=== PATIENT | female | born 1980 | race Caucasian/White ===

== ENCOUNTER 2016-08-09 11:48 | Inpatient (IN) | payer OTHER ==
[~2016-08-09] VITALS: Ht 172.7 cm; Wt 94.4 kg
[2016-08-09 13:00] VITALS: BP 122/82; PULSE 89; RESP 16; O2SAT 97
--- NOTE | 2016-08-09 13:14 | NUR ---
Admit Pt is a direct admit from [facility], report received from [place]. Pt arrived via stretcher, A/O x 4 able to make needs known, pt transferred self, steady gait noted. VSS. Neuros negative, SL easily flushed. Will continue to monitor.
--- NOTE | 2016-08-09 13:36 | PCM.HPMED ---
Subjective Date of Service August 09, 2016 Primary Provider: Admitting Physician: Diana Mesa DO Primary Care Physician: Attending Physician: Diana Mesa DO Allergies Coded Allergies: No Known Drug Allergies (Verified Allergy, Unknown, 08/09/16) Exam Vital Signs Vital Sign - Last Date Time Temp Pulse Resp B/P Pulse Ox O2 Delivery O2 Flow Rate FiO2 08/09/16 13:00 89 08/09/16 13:00 37.1 16 122/82 97 Room Air Assessment & Plan HPI: Patient is a 36-year-old female who presents from [facility] with a complaint of TIA. The patient has a history of palpitations and was actually scheduled to have a Holter monitor next week however the patient had increasing palpitations and started to have aphasia this morning while in the shower and was brought to the hospital. While the patient was at [facility] is noted the patient was in A. fib and also had a troponin of 0.42. CT angio was negative and the patient was transferred here for further cardiology workup TIA rule out. 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 Please see HPI for pertinent positives, all other systems are negatives. Physical Exam: GEN: Patient was awake, alert, responding appropriately to questions HEENT: Pupils equal round and reactive to light, extraocular eye muscles intact , Neck soft supple, trachea midline, nomocephalic/atraumatic CV: +S1/S2, regular rate and rhythm, harsh systolic murmur auscultated Respiratory: CTAB, no wheezes, rales, rhonchi GI: +bowel sounds x4, soft, compressible, nontender to palpation EXT: no clubbing, cyanosis, edema Neuro: Cranial nerves II-XII grossly intact Psych: mood and affect were appropriate Assessment and Plan 36-year-old female with chest palpitations and TIA TIA -CT angios was negative at [facility] -MRI of the brain -Echo -Continue aspirin daily -Follow up lipids -Follow up hemoglobin A1c -Continue to monitor Chest pain with elevated troponin -Serial troponins -Echo -laborer heading in the morning if serial troponins are negative -Telemetry -Continue to monitor -Consider consult to cardiology in the morning Asthma (A currently stable) -Albuterol when necessary Migraines (a currently stable) -Imitrex when necessary Diet: Gen. DVT prophylaxis: SCDs Code Status: Full code Disposition: Due to the nature of the patient's current diagnosis anticipated stay is greater than 2 midnight VTE Prophylaxis: SCDs Resuscitation Status: CPR: Attempt Resuscitation Time spent 1 hour Diana Mesa DO August 09, 2016 13:36
[2016-08-09] MEDS ORDERED: [UNRECOGNIZED DRUG - CODE] PO (13:57)
[2016-08-09] MEDS ORDERED: SUMA100T2 PO (14:00)
[2016-08-09] MEDS ORDERED: ETHI1TAB PO (14:00)
[2016-08-09] MEDS ORDERED: LEVO200T6 PO (14:09)
[2016-08-09] MEDS ORDERED: ALBU6.7H INH (14:09)
[2016-08-09] MEDS ORDERED: Ondansetron 2 mg/mL 2 mL Inj IVPUSH PRN (14:55)
[2016-08-09] MEDS ORDERED: Alum-Mag Hydrox-Simeth 30 mL Suspension PO PRN (14:55)
[2016-08-09] MEDS ORDERED: Polyethylene Glycol (PEG) 17 Gm Powder PO PRN (14:55)
[2016-08-09 16:20] LABS: APPEARANCE,URINE CLEAR (CLEAR,HAZY); COLOR,URINE STRAW (YELLOW); OCCULT BLOOD,URINE NEGATIVE (NEGATIVE); UROBILINOGEN,URINE NORMAL (NORMAL)
[2016-08-09 16:27] LABS: TROPONIN T 0.171 ug/L (0.0-0.011)
[2016-08-09] MEDS ORDERED: Albuterol 2.5 mg/3 mL Inhalation Solution NEB PRN (16:30)
--- NOTE | 2016-08-09 16:58 | NUR ---
Uneventful Pt A/O x 3, independent in room with steady gait. Denies c/o of pain or discomfort. Pt resting comfortably in bed with call light within reach, bed low and locked, intentional rounding.
--- NOTE | 2016-08-09 17:00 | DRSVH ---
PROCEDURE: MRI BRAIN WITHOUT CONTRAST ([id number]) INDICATIONS: DIZZINESS TECHNIQUE: Non-contrast axial T1 spin echo, axial T2 fast spin echo, sagittal and axial FLAIR, coronal T2 fast s pin echo, axial gradient echo, axial diffusion and ADC through the brain. COMPARISON: None. FINDINGS: Image quality: Excellent. CSF spaces: Ventricles appear symmetric in size and shape. Basal cisterns are patent. No extra-axi al fluid collections. Brain: No intracranial bleeds or mass effects. There is cerebral volume loss for age. There are pe riventricular and deep white matter chronic small vessel ischemic changes. Brainstem appears normal. Diffusion-weighted images show no acute ischemic insults. No chronic ischemic insults. Normal int ravascular flow voids are present. Skull and face: Calvarial bone marrow is normal in signal. Orbits are normal. Sinuses: Sinuses and mastoids are clear. IMPRESSION: No acute intracranial abnormality. No recent infarct. No explanation for dizziness. Dictated by: Sushil Mitchell M.D. on 08/09/2016 at 16:57 Approved by: Sushil Mitchell M.D. on 08/09/2016 at 16:58
[2016-08-09 20:22] VITALS: BP 135/84; PULSE 99; RESP 16; O2SAT 95
[2016-08-10] VITALS (7 sets, daily range): BP systolic 104–126; BP diastolic 69–87; PULSE 72–97; RESP 16; O2SAT 95–98
--- NOTE | 2016-08-10 03:38 | NUR ---
Uneventful Night Pt c/o headache 4-08/07 in the beginning of the shift, Tylenol given, headache resolved. Denies chest pain/pressure/SOB, but pt states she can feel irregular heart beats. Tele: SR 80s, quiet a few PVCs, PACs, sometimes bigiminal PVCs per athletic monitor. Lung sounds clear. Troponin at 2200 0.162, slightly lower than previous one 0.171. Denies dizziness,vertigo. Neurocheck no focal neurological deficits. VSS, afebrile.
--- NOTE | 2016-08-10 05:55 | NUR ---
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 Pt asymptomatic. Dr. Stafford paged. No order given at this time.
[2016-08-10 06:01] LABS: Mean Corpuscular Hemoglobin 29.7 pg (27.0-35.0); Mean Corpuscular Volume 88.1 fL (81-100)
[2016-08-10 07:00] LABS: TROPONIN T 0.184 ug/L (0.0-0.011)
--- NOTE | 2016-08-10 11:47 | DRSVH ---
[facility] [address] [place] [address] Echocardiogram Report Name: SANG HERNANDEZ JStudy Date: Height: 68 in Hospital Exam Location: [facility] Weight: 208 lb Gender: Female BSA: 2.1 m2 : 1980 Age: 36 yrs BP: 122/82 mmHg Reason For Study: PALPITATIONS, TIA Ordering Physician: ANA MARIA TEAM Performed By: Wilberto Morillo Referring Physician: Emilia BENJAMIN Interpretation Summary Left ventricular systolic function is severely reduced with the ejection fraction estimated to be around 15% with severe global hypokinesis but no obvious focal wall motion abnormalities. The left ventricle is moderate- severely dilated and no thrombus is seen although cannot be entirely excluded, especially in the setting of a possible TIA. There is left ventricular diastolic dysfunction with the E/E' ratio moderately increased, suggesting possible increased filling pressures. The right ventricle is normal in size and function. Pulmonary artery pressures cannot be estimated because of the lack of a measurable TR jet velocity but the IVC is small, suggesting a low right atrial pressure of 3 mm Hg. The left atrium is mildly dilated while right atrial size is normal. Injection of contrast documented no interatrial shunt. The mitral valve is normal in structure but there is moderate mitral regurgitation. There is no other significant valvular heart disease. Procedure: A two-dimensional transthoracic echocardiogram with color flow and Doppler was performed. The study quality was technically good. There is no prior echocardiogram noted for this patient. A saline contrast injection was performed to assess for cardiac shunting. The patient was in normal sinus rhythm during the exam. The patient had frequent PVCs during the exam. Left Ventricle: There is normal left ventricular wall thickness. The left ventricle is moderate-severely dilated. There is no thrombus. But cannot be entirely excluded. Left ventricular systolic function is severely reduced. The ejection fraction is estimated to be 15-20%. There is severe global hypokinesis of the left ventricle. There are no focal wall motion abnormalities. There is left ventricular diastolic dysfunction. The E/E' ratio is moderately increased, suggesting possible increased filling pressures. Right Ventricle: The right ventricle is normal in size and function. Atria: The left atrium is mildly dilated. Right atrial size is normal. Injection of contrast documented no interatrial shunt. Mitral Valve: There is mild mitral annular calcification. The mitral valve is normal in structure but abnormal in function. There is moderate mitral regurgitation. Aortic Valve: The aortic valve is trileaflet. The aortic valve opens well. There is trace aortic regurgitation. Tricuspid Valve: The tricuspid valve is normal in structure and function. No tricuspid regurgitation. Pulmonary artery pressures cannot be estimated because of the lack of a measurable TR jet velocity. Pulmonic Valve: The pulmonic valve is normal in structure and function. There is trace pulmonic regurgitation. There is no other significant valvular heart disease. Great Vessels: The aortic root is normal size. The dimensions of the ascending aorta are normal. The pulmonary artery is normal size. The IVC is of normal diameter and collapses greater than 50% with a sniff. This suggests a low right atrial pressure of 3 mm Hg. Pericardium/ Pleura There is no pericardial effusion. There is no pleural effusion. MMode/2D Measurements & Calculations LVIDd: 6.8 cm LA dimension: 3.7 cm RA long axis: 5.0 cm Ao root diam LVIDs: 6.0 cm FS: 12.0 % LA A2 area: 23.7 cm RA area: 12.9 cm Aortic Jxn EPSS: 2.2 cm LA A4 area: 24.2 cm RA vol: 28.6 ml IVSd: 0.92 cm LA length (vol): 6.4 cm RA : 13.8 ml/m2 asc Aorta LVPWd: 1.0 cm LA vol: 75.5 ml Diam: 2.8 cm LA vol index: 36.3 ml/m IVC diam: 0.76 cm EDV(MOD-sp2) LV ramos. diameter/BSA LV sys. diameter/BSA (cm/m^2): 3.3 (cm/m^2): 2.9 ESV(MOD-sp2) EF(MOD-sp2) Doppler Measurements & Calculations Ao V2 max MV E max jani MV E/A: 1.6 PA V2 max : 95.0 cm/sec : 76.6 cm/sec Med Peak E' Jani : 59.4 cm/sec Ao max PG MV A max jani PA mean PG : 3.6 mmHg : 48.9 cm/sec E/E' med: 20.6 : 0.82 mmHg Ao mean PG MV A dur: 0.10 sec PA Accel Time : 2.4 mmHg : 0.13 sec MV dec time Ao V2 mean PA V2 mean : 0.14 sec : 75.4 cm/sec : 43.7 cm/sec Ao V2 VTI: 16.7 cm PA pr(Accel) : 14.1 mmHg Reading Physician:11:46 AM
--- NOTE | 2016-08-10 11:53 | NUR ---
Social Work: Screening Data: Pt is a 36 y/o female admitted for TIA. Pt's PCP is Dr Bran, pt's insurance is [employer]. EMR reviewed. No d/c planning needs anticipated at this time. MD states in rounds that cardiology will meet with pt. 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 Assessment: Pt who is independent at baseline. Plan: Pt will d/c home via POV when medically stable. No d/c planning needs anticipated at this time. states in rounds that cardiology will meet with pt. 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 JORGE Barragan
--- NOTE | 2016-08-10 14:41 | CONS ---
[address] [address] CONSULTATION REPORT PATIENT: SANG HERNANDEZ : 1980 MR#: [id number] ADMIT: 08/09/2016 JOB ID: [id number] CARDIOLOGY CONSULTATION: DATE OF SERVICE: 08/10/2016 IDENTIFICATION: Dr. Diana Mesa has asked that I consult on this 36-year-old female admitted with abnormal troponins and complex ventricular ectopy. HISTORY: The patient denies any previous cardiac history, although over the past year she has noted occasional palpitations which she describes as an isolated skipped beat although rarely in brief runs up to around 30 seconds, occasionally associated with some lightheadedness, rarely with near syncope. These have typically been occurring around once a week over the past several months. Around three weeks ago, she had an episode of lightheadedness while driving with impairment of her vision, but denies any clear true presyncope and had no palpitations. This lasted around 30 seconds and resolved. She saw her primary care provider because of this, who noted an irregularity to her pulse and obtained an ECG which showed sinus rhythm with frequent PVCs and an occasional PAC, and she was scheduled for Holter. However, yesterday, while in a hot shower, she developed a transient expressive aphasia where she felt that she could not speak and felt foggy and confused for around 20 seconds. There was no associated palpitations with this nor was there any clear presyncope. However, on the basis of this, she presented to [facility] where an ECG showed a blood pressure 132/107 with an ectopic atrial tachycardia with frequent PVCs at [address] and head CT angiogram were normal but her troponin was elevated at 0.428, but the rest of her laboratory was unremarkable including a TSH that was normal at 1.19 and a normal D-dimer. She was given aspirin and a dose of metoprolol and transferred to [facility]. Here, she continues to feel well. An echocardiogram has been obtained that shows moderate-severe left ventricular enlargement at 6.8 cm with severe global hypokinesis with an ejection fraction around 15% without any focal wall motion abnormality. There is moderate mitral regurgitation but no other significant valvular abnormality. Right ventricular size and function appear normal. There is a small IVC suggesting a low right atrial pressure. There is no obvious intracavitary thrombus. Telemetry here has shown sinus rhythm at 80-100 bpm with frequent PVCs, often in a bigeminal pattern with 112 beat run of a monomorphic ventricular tachycardia at around 150 bpm. She does no regular exercise, but has noted but no clear change in her daily activities, although has noted mild exertional dyspnea over the last several months which she has attributed to being "out of shape" but denies any resting dyspnea or orthopnea. She had no chest pain or other anginal-type symptoms. She has had no pedal edema. She denies any recent myalgias or flu-like syndrome. CARDIAC RISK FACTORS: Denies any history of hypertension, diabetes, or tobacco use. She has had borderline high cholesterol in the past that has not been treated. FAMILY HISTORY: Unremarkable for any premature coronary disease although grandfather had an TX in his 80s. However, two paternal uncles have cardiomyopathy; one requiring a heart transplant at age 60. PAST MEDICAL HISTORY: Notable only for seasonal asthma for which she uses an inhaler rarely. She has a history of hypothyroidism which has been adequately replaced with no recent adjustments in her thyroid medication. She has a history of migraines. She has had previous vaginal mesh surgery and umbilical hernia repair. 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 She admits to two alcoholic beverages per week and adamantly denies any other substance use. REVIEW OF SYSTEMS: No history of any fever or chills or weight change. Denies any vision changes, ENT problems. Denies any cough or hemoptysis. No history of any peptic ulcer disease or GI blood loss. Denies any genitourinary complaints, although had frequent UTIs as a child, but none as an adult. Denies any unusual musculoskeletal complaints or neurologic symptoms except as described above. She denies any bleeding disorder, unusual anxiety or depression. PHYSICAL EXAMINATION: Pleasant, healthy appearing, middle-aged white female, in no distress. HR 89, BP 106/87, O2 saturation 95% on room air. Weight is 94.4 kg. Skin: Warm and dry with multiple tattoos. Eyes: EOM without arcus. She has good dentition. Lungs: Clear bilaterally to auscultation and percussion without any rales or wheeze. CV: Nonpalpable PMI with a regular rhythm with frequent premature beats but no appreciable murmurs or gallops. There is no obvious JVD. Carotid and femoral pulses are 2+ bilaterally with a normal upstroke and without bruit. Dorsalis pedis pulses are 2+ bilaterally and posterior tibial pulses nonpalpable. Abdomen: Soft, nondistended, nontender without any palpable masses or organomegaly. Normal bowel tones are present without bruits. Extremities: Warm without any clubbing, cyanosis, or edema. Neuro: Moves all four extremities. Psych: Awake, alert, and oriented. LABORATORY DATA: White count 5.2 with hematocrit of 39%. Potassium is 4.3 with a BUN of 19 and a creatinine of 0.8 and a glucose of 108. A1c is 5.6. Magnesium is 2.0. Troponins remain mildly elevated ranging from 0.17-0.18 without any clear pattern. Her total cholesterol is 185 with an LDL of 104 and an HDL of 61. TSH is 0.973. IMAGING: ECG shows sinus rhythm without any significant ST-segment abnormalities. There are frequent PVCs. Brain MRI shows no abnormalities. IMPRESSION: 1. Severe global left ventricular cardiomyopathy. The etiology of this is not clear. She has no clear stimulus for this. I doubt that this represents underlying coronary disease given her minimal risk factors. I think the two most likely etiologies would be an arrhythmogenic cardiomyopathy with her frequent premature ventricular contractions possibly producing her left ventricular systolic function or a genetic cardiomyopathy given her family history. Alternatively, her premature ventricular contractions could be a result of her underlying left ventricular dysfunction. At this point, I would attempt medical therapy with metoprolol starting at low doses and escalating upward to see how she responds. Ultimately, I would like to add low-dose SHER inhibitor as well. Fortunately, it does not appear that she has any pulmonary congestion or volume overload, and given this, and her left ventricular enlargement, this most likely is a chronic process rather than an acute process. At some point, she may require cardiac catheterization but I do not think this needs to be done immediately and I would like to get her better compensated. 2. Frequent premature ventricular contractions with nonsustained ventricular tachycardia. As above, this could either be a primary problem that has resulted in her cardiomyopathy, or more likely a result of her cardiomyopathy. I discussed with her the potential need for an implantable defibrillator if her left ventricular systolic function does not improve or if we see more concerning ventricular tachycardia. I would keep her in the hospital for at least another 48 hours to assess for any concerning ventricular arrhythmias. 3. Expressive aphasia. Unclear if this represented a cerebral ischemic event or was more of a hypotensive event given that she was in a hot shower. I do not see any evidence of intracavitary thrombus on her echocardiogram, although one certainly cannot be entirely excluded given her left ventricular systolic function. I do not believe that she requires anticoagulation at this point unless she has recurrent events or there is other demonstrable evidence for thrombus. 4. Hypothyroidism. Appears to be adequately replaced. PLAN: 1. Initiate low-dose metoprolol therapy and consider adding low-dose SHER inhibitor if blood pressure allows it. 2. Slow incremental advancement of both. 3. Continue to monitor heart rate and rhythm over the next 48 hours. 4. Consider implantable defibrillator if she continues to have complex ventricular ectopy. TIME SPENT: I spent 1 hour and 28 minutes reviewing the patient's record and examining the patient, and answering her family's questions.
[2016-08-10] MEDS: MeTOProlol XL 25 mg ER24 Tablet PO SCH ×2 (14:53→21:12)
--- NOTE | 2016-08-10 15:09 | PCM.PNMED ---
Subjective Date of Service August 10, 2016 Subjective Patient was seen and examined at bedside today. Patient denies any chest pain, shortness of breath, nausea, vomiting, diarrhea. Overnight events: None Exam Vital Signs Vital Sign - Last Date Time Temp Pulse Resp B/P Pulse Ox O2 Delivery O2 Flow Rate FiO2 08/10/16 14:18 36.2 72 16 98 Room Air Exam Physical Exam: GEN: Patient was awake, alert, responding appropriately to questions HEENT: Pupils equal round and reactive to light, extraocular eye muscles intact , Neck soft supple, trachea midline, nomocephalic/atraumatic CV: +S1/S2, irregular rhythm harsh systolic murmur auscultated Respiratory: CTAB, no wheezes, rales, rhonchi GI: +bowel sounds x4, soft, compressible, nontender to palpation EXT: no clubbing, cyanosis, edema Neuro: Cranial nerves II-XII grossly intact Psych: mood and affect were appropriate IVs and Medications Medications Reviewed: Medications were reviewed in detail Lab and Diagnostics Result Diagram: 08/10/16 0547 08/10/1647 Assessment & Plan 36-year-old female with chest palpitations and TIA Chest pain with elevated troponin secondary to ventricular tachycardia with possible undiagnosed congenital cardiomyopathy -Serial troponins elevated -Echo EF 15% with elevated LVH 6.8 cm, significantly positive for cardiomyopathy -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 Cummings) -Patient had 12-14 beats of ventricular tachycardia today -Start Carvedilol 6.25 twice a day we will continue to try and titrate the patient up as blood pressure tolerates -We will consider starting lisinopril and titrate up as blood pressure tolerates -HIV screening -Continue to monitor TIA -CT angios was negative at [facility] -MRI of the brain negative for CVA -Echo EF of 15% with moderate LVH -Continue aspirin daily -LDL elevated at 104 -Start atorvastatin 10 mg daily at bedtime -Hemoglobin A1c 5.6 within normal limits -Continue to monitor Asthma (A currently stable) -Albuterol when necessary Migraines (a currently stable) -Imitrex when necessary Diet: Gen. DVT prophylaxis: SCDs, ambulation, Lovenox daily Code Status: Full code Disposition: Cardiology (Dr. Cummings) was consulted this morning in a significant discussion was held with him and the patient's and then discussed with myself. The patient has significant cardiomyopathy as her ejection fraction is 15%. At this time the plan is to optimize the patient medically with beta blockers and tiara inhibitors as her blood pressure tolerates. If the patient has another long run of 12-14 beats of V. tach then the patient may need to be considered for a defibrillator. At this time the patient's TIA symptoms seem to be most likely secondary to some sort of vasovagal reaction from the steaming hot water in the shower causing a hypotensive event as opposed to a TIA. The patient is very well compensated for cardiomyopathy which is most likely congenital in nature. The only other thing that could potentially have caused this is HIV. As the patient does have a significant amount of tattoos were discussed with the patient and run an HIV screening. At this time the patient will need to remain hospitalized for further monitoring and titrating of the medication. VTE Prophylaxis: SCDs Resuscitation Status: CPR: Attempt Resuscitation Diana Mesa DO August 10, 2016 15:09 Diana Mesa DO August 10, 2016 15:09
[2016-08-11] VITALS (9 sets, daily range): BP systolic 105–129; BP diastolic 71–96; PULSE 82–100; RESP 16–20; O2SAT 95–99
[2016-08-11 06:28] LABS: Mean Corpuscular Hemoglobin 29.4 pg (27.0-35.0); Mean Corpuscular Volume 87.5 fL (81-100)
--- NOTE | 2016-08-11 06:34 | NUR ---
Uneventful Night pt able to sleep during the night with minimal interruptions. VSS, afebrile, on RA. denies pain during the night. IV SL, patent when flushed. using call light to make needs known. placed within reach. hourly rounding in effect.
[2016-08-11 07:00] LABS: Unsaturated Iron Binding 269.7 ug/dL
[2016-08-11 07:10] LABS: TROPONIN T 0.108 ug/L (0.0-0.011)
[2016-08-11] MEDS ORDERED: MeTOProlol XL 25 mg ER24 Tablet PO SCH (08:30)
--- NOTE | 2016-08-11 10:46 | PROG NOTE ---
[address] [address] PROGRESS NOTE PATIENT: SANG HERNANDEZ : 1980 MR#: [id number] ADMIT: 08/09/2016 JOB ID: [id number] DATE: 08/11/2016 SUBJECTIVE: The patient continues to feel well and has tolerated her first 2 doses of low-dose metoprolol. She has ambulated and continues to deny any chest discomfort, dyspnea, or lightheadedness. She has had no neurologic symptoms. She feels that she notices her palpitations less prominently. Telemetry continues to show frequent PVCs, at times in a bigeminal and trigeminal pattern, but there has been no nonsustained ventricular tachycardia since yesterday. PHYSICAL EXAMINATION: A healthy appearing, middle-aged female, in no distress. HR 90, BP 111/80, O2 saturation 95% on room air. Lungs clear bilaterally without any rales or wheeze. Cardiovascular regular rate and rhythm, although with frequent premature beats. No appreciable murmurs or gallops. JVP appears to be around 3-4 cm. Carotid pulses have normal upstroke. Abdomen soft, nondistended, and nontender. Extremities warm without any edema. LABORATORY: Hematocrit was 41%. Platelet count was 82,000 down from 215,000. Her bicarb has fallen from 19 and 16. BUN is 18 with a creatinine of 0.8, but a potassium of 4.8, and a magnesium of 2.0. LFTs remain normal. Her troponin is now trending downward at 0.108. Her HIV is nonreactive. Her iron studies are normal. ECG: Her ECG shows a probable ectopic atrial focus with inverted P waves and frequent PVCs. There is inferolateral Q-waves. IMPRESSION: 1. Severe dilated cardiomyopathy with frequent ventricular ectopy including nonsustained ventricular tachycardia. I continue to believe that this most likely is an idiopathic or genetic type of cardiomyopathy. It does not appear to be acute or fulminant given the absence of any pulmonary congestion. She has tolerated initiation of low-dose beta blockade, but subsequent incremental advancement will need to be slow, generally every 1-2 weeks given her severely reduced function. I will initiate low-dose SHER inhibitor today with close observation of her blood pressure, renal function, and electrolytes. I have communicated the case with Dr. Porter, who believes the patient would benefit from an electrophysiologic study and if she had inducible malignant ventricular arrhythmias then a defibrillator would be appropriate. However, this can be deferred to the outpatient setting. He also recommends obtaining a cardiac MR study prior to this to further evaluate the etiology of her cardiomyopathy. This can also be arranged as an outpatient in the next several weeks. In the meantime, she should undergo cardiac catheterization to exclude the possibility of coronary artery disease, although I think this is very unlikely. I will discuss further with Dr. Hoyos to see if he is available tomorrow to perform this. If this shows no significant coronary disease, then I suspect that she can be discharged tomorrow with a Life Vest external defibrillator to protect her until her EP study. She can undergo incremental outpatient upward titration of her metoprolol and lisinopril and if she continues to have significant LV systolic dysfunction after optimal medical therapy, consideration can be given for referral to the [facility] for advanced treatment. I would anticipate repeating an echocardiogram in 2-3 months to assess the efficacy of her medical therapy. 2. Mildly depressed bicarbonate level. I will repeat laboratory tomorrow. 3. Thrombocytopenia. I will repeat a CBC tomorrow. PLAN: 1. Initiate lisinopril 2.5 mg b.i.d. with continued monitoring of her electrolytes, renal function, and blood pressure. 2. Anticipate cardiac catheterization with Dr. Hoyos tomorrow with possible discharge following this if she remains well compensated without any malignant arrhythmias. 3. Anticipate outpatient cardiac MRI and subsequent EP study with incremental advancement of her beta kelly and angiotensin converting enzyme inhibitor. 4. Anticipate repeat echocardiogram in 2-3 months to reassess LV systolic function with consideration for referral to the [facility] if her cardiomyopathy remains severe. 5. The patient should be discharged with a Life Vest external defibrillator. I spent 50 minutes discussing the case with my colleagues, interviewing and examining the patient. CURTIS
--- NOTE | 2016-08-11 15:27 | PCM.PNMED ---
Subjective Date of Service August 11, 2016 Subjective Patient was seen and examined at bedside today. Patient denies any chest pain, shortness of breath, nausea, vomiting, diarrhea. Patient states that the palpitations that she has been feeling have significantly improved. Overnight events: None Exam Vital Signs Vital Sign - Last Date Time Temp Pulse Resp B/P Pulse Ox O2 Delivery O2 Flow Rate FiO2 08/11/16 14:46 36.5 86 18 122/78 98 Room Air Intake and Output 08/10/16 08/10/16 08/11/16 Cumulative From/Thru 15:00 23:00 07:00 08/09/16 13:06 - 08/11/16 06:05 Intake Total 1100 ml 800 ml 700 ml 2600 ml Output Total 1550 ml 950 ml 1100 ml 3600 ml Balance -450 ml -150 ml -400 ml -1000 ml Intake Oral 1100 ml 800 ml 700 ml 2600 ml Output Urine Total 1550 ml 950 ml 1100 ml 3600 ml # Bowel Movements 1 1 Exam Physical Exam: GEN: Patient was awake, alert, responding appropriately to questions HEENT: Pupils equal round and reactive to light, extraocular eye muscles intact , Neck soft supple, trachea midline, nomocephalic/atraumatic CV: +S1/S2, regular rate and rhythm, positive harsh systolic murmur auscultated however seems softer today Respiratory: CTAB, no wheezes, rales, rhonchi GI: +bowel sounds x4, soft, compressible, nontender to palpation EXT: no clubbing, cyanosis, edema Neuro: Cranial nerves II-XII grossly intact Psych: mood and affect were appropriate IVs and Medications Medications Reviewed: Medications were reviewed in detail Lab and Diagnostics Result Diagram: 08/11/16 0555 08/11/16 0555 Assessment & Plan 36-year-old female with chest palpitations and TIA Chest pain with elevated troponin secondary to ventricular tachycardia with possible undiagnosed congenital cardiomyopathy -Serial troponins elevated currently trending down -Echo EF 15% with elevated LVH 6.8 cm, significantly positive for cardiomyopathy -Patient is scheduled to go to the [facility] tomorrow - Continue Telemetry -Cardiology following (Dr. Cummings) -Patient had 12-14 beats of ventricular tachycardia (08/10/16) -Overnight patient was mildly tachycardic however no runs of V. tach but positive PVCs and some bigeminy and trigeminy. -Continue Carvedilol 6.25 twice a day we will continue to try and titrate the patient up as blood pressure tolerates -Start lisinopril 2.5 mg daily as recommended by cardiology -HIV screening: Negative -Continue to monitor TIA -CT angios was negative at [facility] -MRI of the brain negative for CVA -Echo EF of 15% with moderate LVH -Continue aspirin daily -Hemoglobin A1c 5.6 within normal limits -Continue to monitor Hyperlipidemia -LDL elevated at 104 -Total cholesterol was within normal limits -Start atorvastatin 10 mg Asthma (A currently stable) -Albuterol when necessary Migraines (a currently stable) -Imitrex when necessary Diet: Heart healthy, consultation nutrition DVT prophylaxis: SCDs, ambulation, Lovenox daily Code Status: Full code Disposition: The patient seems to be responding well to medical management. After discussion with cardiology (Dr. Cummings) he feels that the patient should remain at her current metoprolol dose of 6.25 mg twice a day and start lisinopril 2.5 mg daily. At this time HIV screen was negative ruling out any type of cardiomyopathy secondary to HIV infection. The patient will go for a cardiac cath tomorrow to look for any possible blockages causing her problems as well. If the patient remains stable tomorrow in tolerates her cardiac cath she could potentially be discharged home tomorrow. The patient has been explained that going into high altitudes at this time may not be the best plan of action for her heart. She should follow closely with cardiology in regards to exercise as well. The patient stated that she understood and would follow recommendations from cardiology. VTE Prophylaxis: SCDs Resuscitation Status: CPR: Attempt Resuscitation Diana Mesa DO August 11, 2016 15:27
[2016-08-11] MEDS: Sodium Chloride LOK Flush 10 mL Syringe IVFLUSH SCH ×2 (16:32→22:05)
--- NOTE | 2016-08-11 17:50 | NUR ---
spotting pt reports spotting since stopping her control medications. pads given
[2016-08-11] MEDS: MeTOProlol XL 25 mg ER24 Tablet PO SCH (21:23)
[2016-08-12] VITALS (14 sets, daily range): BP systolic 100–116; BP diastolic 52–72; PULSE 71–83; RESP 15–18; O2SAT 96–99
[2016-08-12] MEDS ORDERED: 0.9% Sodium Chloride 1,000 ML IV ONE (01:00)
[2016-08-12 06:39] LABS: BASOPHILS % (AUTO) 0.2 % (0-3); EOSINOPHILS % (AUTO) 0.9 % (0-5); MONOCYTES % (AUTO) 8.4 % (4-12); Mean Corpuscular Hemoglobin 29.7 pg (27.0-35.0); NEUTROPHILS % (AUTO) 36.7 % (40-74); Platelet Count 209 bil/L (150-400)
[2016-08-12] MEDS ORDERED: Heparin 10,000 Unit/1,000 mL NS Premix IV ONE (07:30)
[2016-08-12] MEDS ORDERED: Heparin 1,000 Units/500 mL NS Premix IV ONE (07:30)
[2016-08-12] MEDS: MeTOProlol XL 25 mg ER24 Tablet PO SCH (08:22)
[2016-08-12] MEDS: Sodium Chloride LOK Flush 10 mL Syringe IVFLUSH SCH ×2 (08:23→14:15)
[2016-08-12] MEDS ORDERED: fentaNYL-PF 50 mCg/mL 2 mL Inj ONE (09:16)
--- NOTE | 2016-08-12 11:42 | CS94 ---
[address] [address] DIAGNOSTIC CARDIAC CATHETERIZATION PATIENT: SANG HERNANDEZ : 1980 MR#: [id number] ADMIT: 08/09/2016 JOB ID: [id number] PROCEDURE NOTE--CARDIAC CATHETERIZATION LABORATORY: SERVICE DATE: Friday, August 12, 2016 PERSONAL CARE ASSISTANT: Octavio Hoyos MD PROCEDURE: 1. Coronary angiogram--urgent. 2. Right heart catheterization. CLINICAL DETAILS: This 36-year-old woman who was previously healthy and asymptomatic presents to the catheterization laboratory for diagnostic coronary angiogram to rule out coronary disease and ischemic cardiomyopathy after she presented two days ago with palpitations and a brief episode of dysphasia that led to identifying systolic cardiomyopathy with ejection fraction of 15%. On physical examination, she appears not to be in heart failure, and appears to be well compensated with low jugular venous pressure, clear lungs and no edema. ECG shows multiple PVCs and runs of nonsustained ventricular tachycardia and sinus rhythm alternating with probable atrial rhythm. Troponin is somewhat elevated. Echocardiogram shows diffuse hypokinesia without regional wall motion defects. She has a family history suggestive of possible familial cardiomyopathy (two uncles have cardiomyopathy including one had a heart transplant). PROCEDURAL DETAILS: I met her the day before in her room on the [facility] and discussed the findings, impressions, and management considerations with her and her . We discussed the procedure including possible risks and complications. We discussed bleeding, infection, blood clot, as well as injury to nerve, artery, vein or kidney; and also arrhythmia, drug reaction; or others. We discussed treatment as needed including pacemaker, transfusion or surgery. We discussed more serious complications that are possible including stroke, heart attack, cardiac arrest, and emergency surgery including transfer for coronary bypass. After questions and discussion, she signed informed consent to proceed. She was brought to the catheterization laboratory n.p.o., where she was prepped sterilely and draped for the procedure. CORONARY ANGIOGRAM: Arterial access was obtained first in the right common femoral vein using fluoroscopic localization over the femoral head and micropuncture technique to insert a 10 cm, 8-S[place]an side-arm sheath in the right common femoral vein. Then, arterial access was obtained in a similar manner without difficulty using an 18-gauge Cook needle to insert a 10 cm, 6-[place]an side-arm sheath in the right common femoral artery. RIGHT HEART CATHETERIZATION: A right heart catheterization was performed. A 7 cm balloon tipped flow direction thermodilution Chilmark-Yaa catheter was inserted without difficulty to the right wedge position. Right-sided pressures were measured on pullback; and cardiac output was measured with a Marylin technique and thermodilution technique. The Chilmark catheter was then removed. Next, a 6-[place]an JL-4 diagnostic catheter was inserted in the right femoral artery to engage the left coronary artery for angiography. Then, the right coronary artery was imaged using a 6-[place]an JR-4 catheter. Procedure without difficulty. The patient tolerated the procedure well. No complications. A side-arm sheath angiogram shows adequate access in the right common femoral artery for a closure device. Arterial hemostasis was obtained without difficulty using a 6-[place]an Perclose suture. The patient is transferred comfortable and in stable condition from the catheterization laboratory to the [facility] unit for ongoing care including by the primary hospitalist team. I discussed the findings, impressions, and further management considerations with the patient and her ; as well as with the hospitalist service; and with Cardiology. FINDINGS: 1. LMCA: Intact. The left main coronary artery is short and without angiographic stenoses. 2. LAD: Intact. The left anterior descending coronary artery is a large transapical vessel with four diagonals of which three are moderate sized. There are no angiographic obstructions. 3. LCX: Intact. The left circumflex coronary artery distribution includes a large branching ramus vessel; and the LCX proper is a smaller vessel with a small to moderate-sized posterolateral LPL branch. 4. RCA: Intact. Dominant. The right coronary artery has no angiographic obstruction and terminates in a moderate-sized PDA and a moderate-sized RPLB. 5. RHC: a. PAW 12 (mean;V15). b. PA 27/12 (mean 17). c. RV 27/6. d. RA 5 (mean). e. FA 96%, PA 66%. f. O2 saturation 95%. g. Cardiac output 5.3 (Marylin). h. Cardiac output 5.4 (thermodilution). CONCLUSIONS: 1. Coronary arteries--normal; note no angiographic obstruction and not even any angiographically evident atherosclerotic plaquing in this young woman without other CAD risk factors. 2. RHC--compensated right heart pressures with only mildly elevated wedge and no pulmonary hypertension and maintained cardiac output. RECOMMENDATIONS: The current study rules out ischemic cardiomyopathy that would require revascularization.
--- NOTE | 2016-08-12 15:02 | PROG NOTE ---
[address] [address] PROGRESS NOTE PATIENT: SANG HERNANDEZ : 1980 MR#: [id number] ADMIT: 08/09/2016 JOB ID: [id number] DATE: 08/12/2016 SUBJECTIVE: The patient is sitting on bed. No active chest pain or worsening shortness of breath, palpitation or syncope, or stroke-like symptoms or right groin bleed. OBJECTIVE: Blood pressure 105/70, heart rate 80, respiratory rate 16, oxygen saturation in room air 99%. Neck: No apparent JVP. Chest: No obvious crepitation, rhonchi. CVS: S1, S2 normal. No S3, no S4. Clinically no significant murmur. Abdomen: No obvious pulsatile mass. Right groin examination did not reveal any significant hematoma. Extremities: No significant pedal edema. TELEPHONY ENGINEER: Alert, oriented to time, place, and person. Vascular: No evidence of critical limb ischemia. Telemetry: Sinus rhythm with intermittent PVCs. Sometimes ventricular trigeminy. LABS: Sodium 140, potassium 4.4, BUN 15, creatinine 0.79. Recent iron studies were normal. TSH was within normal limits. Hemoglobin 12.9, platelets 209. HIV workup negative. Echocardiogram on August 10, 2016 revealed a moderate to severely dilated left ventricle with LV ejection fraction about 15% to 20% with severe global hypokinesis without any obvious LV thrombus, normal right ventricular function, mild MAC with moderate MR, no pericardial effusion. Left heart catheterization today did not reveal any obvious coronary artery disease. Mean wedge pressure 12 mmHg. Pulmonary artery systolic pressure 27/12 mmHg. Cardiac output 5.3 with Marylin. ASSESSMENT/PLAN: Severely dilated cardiomyopathy with frequent ventricular ectopy, nonsustained ventricular tachycardia, status post left heart catheterization which did not reveal any coronary artery disease. The patient denies any known history of diabetes, hypertension or alcoholism. No recent viral infection. No history of chemotherapy. The patient has family history of dilated cardiomyopathy from her father's side. One of her uncles has cardiac transplant and 2nd uncle has restrictive cardiomyopathy. The patient denies any known history of connective tissue disorder. Iron studies normal. No history of cardiomyopathy. There is a possibility of familial dilated cardiomyopathy. For detailed description, please refer to Dr. Cummings's consultation and followup note. At this point of time, I will start her on Aldactone 12.5 mg daily. Slowly and gradually we will recommend optimization and maximization of beta kelly and SHER inhibitor. At present, she is not in gross volume overload. There was no obvious LV clot seen in the left ventricle. There is no dense spontaneous echo contrast as well. MRI head did not reveal any obvious stroke. I had a long discussion with the patient as well as hospitalist. Dr. Cummings also briefed me about this patient. The plan is to arrange a life vest for her. Dr. Cummings will see her as an outpatient. He already spoke to our window maker, Dr. Porter, who will see her as an outpatient. Cardiac MRI as an outpatient. We will recommend close monitoring of electrolytes. Consider pulmonary embolism prophylaxis until she is in the hospital. Preventive measures. Congestive heart failure education discussed. Overall time spent today about 40 minutes.
--- NOTE | 2016-08-12 17:02 | NUR ---
Returned from [facility] Patient arrived back to room from [facility] s/p heart cath. Heart cath was diagnostic only, no interventions done. R groin site soft, slightly tender, no oozing or redness noted. No s/sx bruising/hematoma. Pt A&O, VSS. Pt denies pain/discomfort at this time. Pt independent to bathroom. SO at beside, call light within reach.
[2016-08-12] MEDS ORDERED: SPIR25TA PO (17:48)
[2016-08-12] MEDS ORDERED: ASPI325T32 PO (17:48)
[2016-08-12] MEDS ORDERED: LISI-571 PO (17:48)
[2016-08-12] MEDS ORDERED: METO25TA99 PO (17:48)
--- NOTE | 2016-08-12 18:08 | PCM.DIMED ---
Discharge Instructions Date of Service August 12, 2016 Dates of Hospitalization August 09, 2016 at 13:00 Discharge Diagnosis Discharge Diagnosis Severely dilated cardiomyopathy with frequent ventricular beats Hyperlipidemia Asthma Migraines TIA (ruled out) Diet Heart Healthy Activity Other (DO not go to higher altitudes until cleared by cardiology. Please do not do any strenuous activity such as exercising until you are cleared by cardiology.) Call your provider Shortness of breath, Chest pain, Weakness (unilateral) Patient Instructions Follow-up plan There is a prescription for a cardiac MRI for you to follow up with please call the number and schedule an appointment [phone] There is also a prescription for follow-up blood work please get this done a early's convenience Follow-up Provider: Bianka Bran MD Follow-up with PCP in: 1 week (If an appointment has not been made please call to schedule an appointment) Provider: Earl Porter MD Follow-up in: 1 week (If an appointment has not been made please call to schedule an appointment [phone]) Mid-level Provider (F9): Marcos Cummings MD Follow-up with Mid-level in: 2 weeks (If an appointment has not been made please call to schedule an appointment [phone]) Diana Mesa DO August 12, 2016 18:08
--- NOTE | 2016-08-12 18:26 | PCM.DC.MED ---
Discharge Summary Date of Service August 12, 2016 Dates of Hospitalization Date of Hospital Admission August 09, 2016 at 13:00 Date of Discharge: August 12, 2016 Providers: Admitting Physician: Diana Mesa DO Primary Care Physician: Bianka Benjamin MD Attending Physician: Diana Mesa DO Diagnosis at Time of Discharge Diagnosis at Time of Discharge Severely dilated cardiomyopathy with frequent ventricular beats Hyperlipidemia Asthma Migraines TIA (ruled out) Procedures XRay, CTs & MRIs PROCEDURE: MRI BRAIN WITHOUT CONTRAST ([id number]) IMPRESSION: No acute intracranial abnormality. No recent infarct. No explanation for dizziness. Dictated by: Sushil Mitchell M.D. on 08/09/2016 at 16:57 Approved by: Sushil Mitchell M.D. on 08/09/2016 at 16:58 Cardiac Echo Impression Echocardiogram Report Name: SANG HERNANDEZ JStudy Date: Height: 68 in Hospital Exam Location: [facility] Weight: 208 lb Gender: Female BSA: 2.1 m2 : 1980 Age: 36 yrs BP: 122/82 mmHg Reason For Study: PALPITATIONS, TIA Ordering Physician: ANA MARIA COCHRAN Performed By: Wilberto Morillo Referring Physician: Emilia BENJAMIN Interpretation Summary Left ventricular systolic function is severely reduced with the ejection fraction estimated to be around 15% with severe global hypokinesis but no obvious focal wall motion abnormalities. The left ventricle is moderate- severely dilated and no thrombus is seen although cannot be entirely excluded, especially in the setting of a possible TIA. There is left ventricular diastolic dysfunction with the E/E' ratio moderately increased, suggesting possible increased filling pressures. The right ventricle is normal in size and function. Pulmonary artery pressures cannot be estimated because of the lack of a measurable TR jet velocity but the IVC is small, suggesting a low right atrial pressure of 3 mm Hg. The left atrium is mildly dilated while right atrial size is normal. Injection of contrast documented no interatrial shunt. The mitral valve is normal in structure but there is moderate mitral regurgitation. There is no other significant valvular heart disease. Reading Physician:11:46 AM Invasive Procedures PROCEDURE NOTE--CARDIAC CATHETERIZATION LABORATORY: SERVICE DATE: Friday, August 12, 2016 SPECIAL EVENTS DRIVER: Octavio Hoyos MD PROCEDURE: 1. Coronary angiogram--urgent. 2. Right heart catheterization. CLINICAL DETAILS: This 36-year-old woman who was previously healthy and asymptomatic presents to the catheterization laboratory for diagnostic coronary angiogram to rule out coronary disease and ischemic cardiomyopathy after she presented two days ago with palpitations and a brief episode of dysphasia that led to identifying systolic cardiomyopathy with ejection fraction of 15%. On physical examination, she appears not to be in heart failure, and appears to be well compensated with low jugular venous pressure, clear lungs and no edema. ECG shows multiple PVCs and runs of nonsustained ventricular tachycardia and sinus rhythm alternating with probable atrial rhythm. Troponin is somewhat elevated. Echocardiogram shows diffuse hypokinesia without regional wall motion defects. She has a family history suggestive of possible familial cardiomyopathy (two uncles have cardiomyopathy including one had a heart transplant). PROCEDURAL DETAILS: I met her the day before in her room on the [facility] and discussed the findings, impressions, and management considerations with her and her . We discussed the procedure including possible risks and complications. We discussed bleeding, infection, blood clot, as well as injury to nerve, artery, vein or kidney; and also arrhythmia, drug reaction; or others. We discussed treatment as needed including pacemaker, transfusion or surgery. We discussed more serious complications that are possible including stroke, heart attack, cardiac arrest, and emergency surgery including transfer for coronary bypass. After questions and discussion, she signed informed consent to proceed. She was brought to the catheterization laboratory n.p.o., where she was prepped sterilely and draped for the procedure. CORONARY ANGIOGRAM: Arterial access was obtained first in the right common femoral vein using fluoroscopic localization over the femoral head and micropuncture technique to insert a 10 cm, 8-Mauritian side-arm sheath in the right common femoral vein. Then, arterial access was obtained in a similar manner without difficulty using an 18-gauge Cook needle to insert a 10 cm, 6-Mauritian side-arm sheath in the right common femoral artery. RIGHT HEART CATHETERIZATION: A right heart catheterization was performed. A 7 cm balloon tipped flow direction thermodilution [place] catheter was inserted without difficulty to the right wedge position. Right-sided pressures were measured on pullback; and cardiac output was measured with a Marylin technique and thermodilution technique. The [place] catheter was then removed. Next, a 6-Mauritian JL-4 diagnostic catheter was inserted in the right femoral artery to engage the left coronary artery for angiography. Then, the right coronary artery was imaged using a 6-Mauritian JR-4 catheter. Procedure without difficulty. The patient tolerated the procedure well. No complications. A side-arm sheath angiogram shows adequate access in the right common femoral artery for a closure device. Arterial hemostasis was obtained without difficulty using a 6-Mauritian Perclose suture. The patient is transferred comfortable and in stable condition from the catheterization laboratory to the [facility] unit for ongoing care including by the primary hospitalist team. I discussed the findings, impressions, and further management considerations with the patient and her ; as well as with the hospitalist service; and with Cardiology. FINDINGS: 1. LMCA: Intact. The left main coronary artery is short and without angiographic stenoses. 2. LAD: Intact. The left anterior descending coronary artery is a large transapical vessel with four diagonals of which three are moderate sized. There are no angiographic obstructions. 3. LCX: Intact. The left circumflex coronary artery distribution includes a large branching ramus vessel; and the LCX proper is a smaller vessel with a small to moderate-sized posterolateral LPL branch. 4. RCA: Intact. Dominant. The right coronary artery has no angiographic obstruction and terminates in a moderate-sized PDA and a moderate-sized RPLB. 5. RHC: a. PAW 12 (mean;V15). b. PA 27/12 (mean 17). c. RV 27/6. d. RA 5 (mean). e. FA 96%, PA 66%. f. O2 saturation 95%. g. Cardiac output 5.3 (Marylin). h. Cardiac output 5.4 (thermodilution). CONCLUSIONS: 1. Coronary arteries--normal; note no angiographic obstruction and not even any angiographically evident atherosclerotic plaquing in this young woman without other CAD risk factors. 2. RHC--compensated right heart pressures with only mildly elevated wedge and no pulmonary hypertension and maintained cardiac output. RECOMMENDATIONS: The current study rules out ischemic cardiomyopathy that would require revascularization. Octavio Hoyos MD 08/12/16 1044 Hospital Course 36-year-old female with chest palpitations and TIA symptoms Patient presented to the emergency room with the complaint of chronic chest palpitations and an episode of slurred speech while in the shower. The patient was admitted for a TIA workup and brain MRI was negative however patient's echo showed that she had an EF of 15% in a severe cardiomyopathy. Cardiology was involved and started the patient on beta kelly 6.25 mg of carvedilol twice a day and 2.5 mg of lisinopril. The patient was sent to the [facility] and her coronary arteries were clear. 12.5 mg of spironolactone was added today. The patient should follow-up with cardiology and her PCP upon discharge. The patient should also follow-up with Dr. Porter for electrophysiology of the heart. The patient will also follow-up to have a cardiac MRI and follow-up labs were ordered by Dr. Ellis for BARB, CBC, BMP, troponin, RA, CPK, and C- reactive protein. The patient does have a training for work that is to be in [facility] however because of the high altitude this has been advised against as we are unsure with a high altitude could also due to the heart and oxygen saturation. The patient stated that she understood and would let her job know. The patient is being discharged home in stable condition with a LifeVest. This case was discussed today with Dr. Ellis and Dr. Hoyos. See below for full hospital course: Chest pain with elevated troponin secondary to ventricular tachycardia with possible undiagnosed congenital cardiomyopathy -Serial troponins elevated currently trending down -Echo EF 15% with elevated LVH 6.8 cm, significantly positive for cardiomyopathy -Patient is scheduled to go to the [facility] tomorrow - Continue Telemetry -Cardiology following (Dr. Cummings) -Patient had 12-14 beats of ventricular tachycardia (08/10/16) -Overnight patient was mildly tachycardic however no runs of V. tach but positive PVCs and some bigeminy and trigeminy. -Continue Carvedilol 6.25 twice a day we will continue to try and titrate the patient up as blood pressure tolerates -Start lisinopril 2.5 mg daily as recommended by cardiology -HIV screening: Negative -Continue to monitor TIA (he ruled out -CT angios was negative at [facility] -MRI of the brain negative for CVA -Echo EF of 15% with moderate LVH -Continue aspirin daily -Hemoglobin A1c 5.6 within normal limits -Continue to monitor Hyperlipidemia -LDL elevated at 104 -Total cholesterol was within normal limits -Start atorvastatin 10 mg Asthma (A currently stable) -Albuterol when necessary Migraines (a currently stable) -Imitrex when necessary Diet: Heart healthy, consultation nutrition DVT prophylaxis: SCDs, ambulation, Lovenox daily Code Status: Full code Disposition: The patient seems to be responding well to medical management. After discussion with cardiology (Dr. Cummings) he feels that the patient should remain at her current metoprolol dose of 6.25 mg twice a day and start lisinopril 2.5 mg daily. At this time HIV screen was negative ruling out any type of cardiomyopathy secondary to HIV infection. The patient will go for a cardiac cath tomorrow to look for any possible blockages causing her problems as well. If the patient remains stable tomorrow in tolerates her cardiac cath she could potentially be discharged home tomorrow. The patient has been explained that going into high altitudes at this time may not be the best plan of action for her heart. She should follow closely with cardiology in regards to exercise as well. The patient stated that she understood and would follow recommendations from cardiology. Exam Vital Signs (Last) Date Time Temp Pulse Resp B/P Pulse Ox O2 Delivery O2 Flow Rate FiO2 08/12/16 12:59 36.7 80 16 105/70 99 Room Air Exam Physical Exam: GEN: Patient was awake, alert, responding appropriately to questions HEENT: Pupils equal round and reactive to light, extraocular eye muscles intact , Neck soft supple, trachea midline, nomocephalic/atraumatic CV: +S1/S2, regular rate and rhythm, positive systolic murmur auscultated Respiratory: CTAB, no wheezes, rales, rhonchi GI: +bowel sounds x4, soft, compressible, nontender to palpation EXT: no clubbing, cyanosis, edema Neuro: Cranial nerves II-XII grossly intact Psych: mood and affect were appropriate Test 08/09/16 15:15 08/09/16 15:45 08/10/16 05:47 08/10/16 17:47 Hemoglobin A1c 5.6% (4.8-5.6) Urine Color Straw (YELLOW) Urine Appearance Clear (CLEAR,HAZY) Urine pH 6.0 (5.0-8.0) Urine Specific Manley 1.015 (1.003-1.035) Urine Protein Negativemg/dL (NEG,TRACE) Urine Glucose (UA) Negativemg/dL (NEGATIVE) Urine Ketones Tracemg/dL (NEGATIVE) Urine Occult Blood Negative (NEGATIVE) Urine Nitrite Negative (NEGATIVE) Urine Bilirubin Negative (NEGATIVE) Urine Urobilinogen Normalmg/dL (NORMAL) Urine Leukocyte Esterase Negative (NEGATIVE) Urine RBC 0-2/hpf (0-2) Urine WBC 0-5/hpf (0-5) Urine Epithelial Cells Few/hpf (NONE-MOD) Urine Crystals None seen (NONE SEEN) Urine Bacteria Few/hpf (NONE-FEW) Urine Hyaline Casts None/lpf (NONE) Urine Granular Casts None seen (NONE SEEN) Urine Waxy Casts None seen (NONE SEEN) Urine Red Blood Cell Casts None seen (NONE SEEN) Urine White Blood Cell Casts None seen (NONE SEEN) Urine Mucus None seen (None Seen) Urine Trichomonas None seen (NONE SEEN) Urine Yeast None (NONE SEEN) Urine Culture Reflexed Not indicated Triglycerides Level 99mg/dL (0-149) Cholesterol Level 185mg/dL (100-199) LDL Cholesterol, Calculated 104.200mg/dL (0-99) VLDL Cholesterol 19.800mg/dL HDL Cholesterol 61mg/dL (>39) Cholesterol/HDL Ratio 3.03 (0.0-4.4) Thyroid Stimulating Hormone (TSH) 0.973uIU/mL (0.450-4.500) HIV (1&2) Ag and Ab, 4th Generation Non reactive (Non Reactive) Test 08/11/16 05:55 08/11/16 16:32 08/12/16 06:10 08/12/16 17:40 Iron Level 62ug/dL (35-150) Total Iron Binding Capacity 332ug/dL (250-450) Percent Iron Saturation 19%sat (15-50) Unsaturated Iron Binding 269.7ug/dL Ferritin 83ng/mL (13-150) Total Bilirubin 0.3mg/dL (0.0-1.2) Aspartate Amino Transf (AST/SGOT) 24U/L (0-50) Alanine Aminotransferase (ALT/SGPT) 13U/L (0-32) Alkaline Phosphatase 32U/L (25-150) Total Protein 6.6g/dL (6.4-8.4) Albumin 3.5g/dL (3.4-5.0) Human Chorionic Gonadotropin, Qual Negative (Negative) Hold [place] Top Tube Received (Received) White Blood Count 4.5th/mm3 (3.8-10.1) Red Blood Count 4.34mil/mm3 (3.90-5.20) Hemoglobin 12.9g/dL (12.0-15.6) Hematocrit 38.2% (35.0-46.0) Mean Corpuscular Volume 88.0fL (81-100) Mean Corpuscular Hemoglobin 29.7pg (27.0-35.0) Mean Corpuscular Hemoglobin Concent 33.8% (32.0-37.0) Red Cell Distribution Width 12.4% (12.3-15.4) Platelet Count 209bil/L (150-400) Neutrophils (%) (Auto) 36.7% (40-74) Lymphocytes (%) (Auto) 53.6% (14-46) Monocytes (%) (Auto) 8.4% (4-12) Eosinophils (%) (Auto) 0.9% (0-5) Basophils (%) (Auto) 0.2% (0-3) Sodium Level 140mEq/L (134-144) Potassium Level 4.4mEq/L (3.5-5.2) Chloride Level 104mEq/L (97-108) Carbon Dioxide Level 21mmol/L (18-29) Blood Urea Nitrogen 15mg/dL (6-20) Creatinine 0.79mg/dL (0.57-1.00) Estimat Glomerular Filtration Rate 117mL/min (>59) Glucose Level 93mg/dL (60-99) Calcium Level 9.2mg/dL (8.5-10.1) Magnesium Level 2.0mg/dL (1.6-2.6) Discharge Medications Discharge Medications Aspirin (Aspirin) 325 Mg Tablet 325 MG PO DAILY Prescribed by: DIANA MESA DO Ethinyl Estradiol/Drospirenone 0.03-3 mg (Ocella 0.03-3 mg) 1 Each Tablet 1 TABLET PO DAILY (Reported) Levothyroxine (Levothyroxine) 200 Mcg Tablet 200 MCG PO DAILY (Reported) Lisinopril (Lisinopril) 5 Mg Tablet 2.5 MG PO BID Prescribed by: DIANA MESA DO Metoprolol Succinate ER (Metoprolol Succinate ER) 25 Mg Tab.er.24h 6.25 MG PO BID Prescribed by: DIANA MESA DO Spironolactone (Aldactone) 25 Mg Tablet 12.5 MG PO DAILY Prescribed by: DIANA MESA DO As needed Albuterol Sulfate (Proventil HFA Inhaler) 6.7 Gm Hfa.aer.ad 1 PUFF INH PRN For Shortness of Breath (Reported) Sumatriptan Succinate (Sumatriptan Succinate) 100 Mg Tablet 100 MG PO PRN MIGRAINE (Reported) Followup Plan Follow-up plan There is a prescription for a cardiac MRI for you to follow up with please call the number and schedule an appointment [phone] There is also a prescription for follow-up blood work please get this done a early's convenience Discharge Diet: Heart Healthy Discharge Activity: Other (DO not go to higher altitudes until cleared by cardiology. Please do not do any strenuous activity such as exercising until you are cleared by cardiology.) Follow-up Provider: Bianka Benjamin MD Follow-up with PCP in: 1 week (If an appointment has not been made please call to schedule an appointment) Provider: Earl Porter MD Follow-up in: 1 week (If an appointment has not been made please call to schedule an appointment [phone]) Mid-level Provider: Marcos Cummings MD Follow-up with Mid-level in: 2 weeks (If an appointment has not been made please call to schedule an appointment [phone]) Time spent Greater than 40 minutes copies to: Bianka Benjamin MD; Earl Porter MD; Marcos Cummings MD, Precious L DO August 12, 2016 18:26
--- NOTE | 2016-08-12 19:00 | NUR ---
Discharge Pt received LifeVest and LifeVest teaching from [employer] rep. No change in groin site, VSS. Patient teaching on CHF and medications done with pt and pt SO. Printed rx and discharge instructions given and reviewed verbally with pt. All pt questions answered. Pt left unit via WC with all personal belongings, accompanied by SO and transported home via personal vehicle.
== END 2016-08-12 18:53 | disposition home or self-care (01) | DRG 287 ==
LOC: MPC 13:00 → OBSVTOIN 13:00
PROVIDERS: ADMIT Neuromusculoskeletal Medicine & OMM; ATTEND Neuromusculoskeletal Medicine & OMM
PROC: B211YZZ Fluoroscopy of Multiple Coronary Arteries using Other Contrast (ICD-10-PCS; principal; 2016-08-12)
PROC: 4A023N6 Measurement of Cardiac Sampling and Pressure, Right Heart, Percutaneous Approach (ICD-10-PCS; 2016-08-12)
DX: I42.8 Other cardiomyopathies (principal); I47.2 Ventricular tachycardia; J45.909 Unspecified asthma, uncomplicated; G43.909 Migraine, unspecified, not intractable, without status migrainosus